=== PATIENT | male | born 1945 | race Caucasian/White ===

== ENCOUNTER → 2023-08-22 | Outpatient (CLI) | payer MEDICARE ==
--- NOTE | 2023-08-22 14:21 | US ---
EXAMINATION TYPE: US kidneys/renal and bladder DATE OF EXAM: 08/22/2023 COMPARISON: NONE CLINICAL INDICATION: Male, 77 years old with history of R94.4 ABNORMAL RESULTS OF KIDNEY; Patient sta hailey abnormal labs before but no other signs, symptoms, or relevant history EXAM MEASUREMENTS: Right Kidney: 11.7 x 5.2 x 5.6 cm Left Kidney: 10.2 x 6.0 x 5.4 cm Post Void Residual Volume: NA mL Right Kidney: wnl Left Kidney: wnl Bladder: Bilateral mid utreteroceles Bilateral Jets seen: Yes Normal Post Void Residual: NA There is no evidence for hydronephrosis at this point in time. No nephrolithiasis is seen. No blanca s are identified. The urinary bladder is anechoic. Bilateral ureteral jets are seen. IMPRESSION: 1. Mild cortical thinning and increased echogenicity consistent with mild medical renal disease. 2. No solid renal mass, renal calcification or hydronephrosis. 3. Bilateral ureteroceles
== END | disposition home or self-care (01) ==
LOC: RADUSWWP 10:04
PROVIDERS: ATTEND Family Medicine
DX: R94.4 Abnormal results of kidney function studies (principal); N28.89 Other specified disorders of kidney and ureter
CPT/HCPCS: 76770

== ENCOUNTER → 2024-09-24 | Outpatient (CLI) | payer MEDICARE ==
--- NOTE | 2024-09-25 07:39 | US ---
EXAMINATION TYPE: US prostate transrectal DATE OF EXAM: 09/24/2024 COMPARISON: NONE CLINICAL INDICATION: Male, 79 years old with history of R97.20 ELEVATED PROSTATE ANTIGEN; Elevated PS A TECHNIQUE: Grayscale and color Doppler imaging of the prostate gland. This examination was performed using the transrectal probe. EXAM MEASUREMENTS: Gland Size: 5.5 x 4.8 x 3.3 cm. Volume: 45.64 Predicted PSA: 5.48 ng/ml Actual PSA (if available):4.03 ng/ml Enlarged and heterogeneous gland. No obvious lesions seen by ultrasound. Calcifications noted within the central zone. Unable to visualize the seminal vesicles. IMPRESSION: 1. No suspicious masses visualized. 2. Note that prostate MRI is a more sensitive exam for the detection of clinically significant prost ate adenocarcinoma. Predicted PSA = volume x 0.12 ng/ml Calculated Volume = 0.5236 x L x W x [facility], , 09/25/2024 7:37 AM
== END | disposition home or self-care (01) ==
LOC: RADUSWWP 09:52
PROVIDERS: ATTEND Family Medicine
DX: R97.20 Elevated prostate specific antigen [PSA] (principal)
CPT/HCPCS: 76872